=== PATIENT | female | born 1995 | race African-American/Black ===

== ENCOUNTER 2016-11-15 18:13 | Emergency (ER) | payer MEDICAID, OTHER ==
[~2016-11-15] VITALS: Ht 165.1 cm; Wt 66.0 kg
[~2016-11-15 18:13] MED LIST: IOHEXOL-300 100 ML BOTTLE ONE; SODIUM CHLORIDE 0.9% 10ML VIAL ONE
[2016-11-15] MEDS ORDERED: SODIUM CHLORIDE 0.9% 1,000 ML IV ONE (20:51)
[2016-11-15] MEDS ORDERED: KETOROLAC 30MG/ML VIAL IV STA (20:51)
[2016-11-15 20:53] LABS: CLARITY URINE CLOUDY (CLEAR); COLOR URINE YELLOW (YELLOW); GLUCOSE URINE NEGATIVE (NEGATIVE); KETONES URINE NEGATIVE (NEGATIVE); LEUKOCYTE ESTERASE URINE 3+ (NEGATIVE); NITRITE URINE POSITIVE (NEGATIVE); OCCULT BLOOD URINE TRACE (NEGATIVE); PROTEIN URINE NEGATIVE (NEGATIVE); SPECIFIC GRAVITY URINE 1.017 (1.005-1.030)
[2016-11-15] MEDS ORDERED: MORPHINE SULFATE 4 MG/ML CPJ (NOT FOR IM USE) IV ONE (21:00)
[2016-11-15 21:07] LABS: SQUAMOUS EPITHELIAL CELL URINE 1+ /lpf (RARE/1+)
[2016-11-15 21:08] LABS: WBC URINE 25-50 /hpf (0-2)
[2016-11-15 21:11] LABS: BACTERIA URINE 1+
[2016-11-15 21:19] VITALS: BP 117/67
[2016-11-15 21:46] LABS: BASOPHILS % 0.5 % (0.0-2.0); DIFFERENTIAL COMMENT 0; EOSINOPHILS % 0.6 % (0.0-5.0); HEMOGLOBIN. 11.3 g/dL (12.0-16.0); LYMPHOCYTES % 30.1 % (20.0-50.0); MEAN CORPUSCULAR HEMOGLOBIN 22.5 pg (28.0-32.0); MEAN CORPUSCULAR HGB CONC 31.4 g/dL (31.0-37.0); MEAN CORPUSCULAR VOLUME 71.8 fL (81.0-99.0); MEAN PLATELET VOLUME 10.6 fl (7.4-10.4); MONOCYTES % 5.6 % (2.0-8.0); NEUTROPHILS % 63.2 % (40.0-76.0); PLATELET 145 x1000/uL (130-400); RED BLOOD CELL COUNT 5.01 mill/uL (4.2-5.4); WHITE BLOOD COUNT 10.5 x1000/uL (4.5-11.0)
[2016-11-15 21:52] LABS: INR 1.1; PROTHROMBIN TIME 11.4 sec
[2016-11-15 21:55] LABS: ANION GAP 12; CALCIUM 8.8 mg/dL (8.5-10.1); CARBON DIOXIDE 27 mEq/L (21-32); CHLORIDE 103 mEq/L (98-107); INDEX HEMOLYSI 1 (1-3); INDEX ICTERIC 1 (1-4); INDEX LIPEMIC 1 (1-3); LIPASE 106 IU/L (73-393); UREA NITROGEN BLOOD 8 mg/dL (7-21)
[2016-11-15 21:57] LABS: ALANINE AMINOTRANSFERASE 13 IU/L (13-61); eGFR > 60 mL/min (>60)
[2016-11-16 00:31] LABS: *AMPHETAMINES SCREEN URINE NEGATIVE (NEGATIVE); *BARBITURATES SCREEN URINE NEGATIVE (NEGATIVE); *BENZODIAZEPINES SCREEN URINE NEGATIVE (NEGATIVE); *COCAINE SCREEN URINE NEGATIVE (NEGATIVE); ECSTASY MDMA SCREEN URINE NEGATIVE (NEGATIVE); METHADONE URINE SCREEN NEGATIVE (NEGATIVE); OPIATES URINE SCREEN NEGATIVE (NEGATIVE); PHENCYCLIDINE URINE SCREEN NEGATIVE (NEGATIVE)
[2016-11-16 00:32] LABS: CANNABINOID URINE SCREEN PRESUMTIVE POSITIVE (NEGATIVE)
[2016-11-16] MEDS ORDERED: AZITHROMYCIN 500 MG TABLET PO ONE (01:00)
[2016-11-16] MEDS ORDERED: LIDOCAINE HCL/EPINEPHRINE 1%-EPI 1:100,000 20 ML VIAL MC ONE (01:00)
[2016-11-16] MEDS ORDERED: METRONIDAZOLE 500MG TABLET PO ONE (01:00)
[2016-11-16] MEDS ORDERED: CEFTRIAXONE SODIUM 250 MG/VIAL IM ONE (01:00)
[2016-11-16] MEDS ORDERED: CEFTRIAXONE SODIUM 250 MG/VIAL ONE (01:24)
[2016-11-16] MEDS: CEFTRIAXONE 250 MG in DEXTROSE 5% WATER 25 ML IV ONE ×2 (01:42→02:13)
[2016-11-16] MEDS ORDERED: CEFTRIAXONE 250 MG in DEXTROSE 5% WATER 50 ML IV NR (01:48)
[2016-11-19 17:17] LABS: CHLAMYDIA TRACHOMATIS NAA Positive (Negative); NEISSERIA GONORRHOEAE NAA Negative (Negative)
== END 2016-11-16 03:04 | disposition home or self-care (01) ==
LOC: ER 20:08
DX: N39.0 Urinary tract infection, site not specified (principal); N73.9 Female pelvic inflammatory disease, unspecified; N83.201 Unspecified ovarian cyst, right side; Z87.442 Personal history of urinary calculi
CPT/HCPCS: 36415; 74178; 80053; 80305; 81001; 81025; 83690; 85025; 85610; 87210; 87491; 87591; 96361; 96365; 96375; 99285; A4216; J0696; J1885; J2270; J3490; J7030; Q9967; Z7610; J7060

== ENCOUNTER 2016-11-16 15:33 | Emergency (ER) | payer MEDICAID | END 2016-11-16 16:32 | disposition left against medical advice (07) | LOC: ER 16:29 | DX: Z53.21 Procedure and treatment not carried out due to patient leaving prior to being seen by health care provider (principal) ==